=== PATIENT | female | born 1975 | race Caucasian/White ===

== ENCOUNTER 2022-05-23 09:42 | Day surgery (SDC) | payer OTHER ==
[~2022-05-23] VITALS: Ht 152.4 cm; Wt 77.1 kg
[2022-05-23] MEDS ORDERED: fentaNYL citrate 0.05 MG/ML VIAL ONE (10:16)
[2022-05-23] MEDS ORDERED: diphenhydrAMINE 50 MG/ML VIAL ONE (10:16)
[2022-05-23] MEDS ORDERED: MIDAZOLAM 2 MG/2 ML VIAL ONE (10:17)
[2022-05-23] MEDS ORDERED: LIDOCAINE 2% 100 MG/5 ML UJET TP ONE (10:17)
[2022-05-23] MEDS ORDERED: fentaNYL citrate 0.05 MG/ML VIAL IVP ONE (12:15)
[2022-05-23] MEDS ORDERED: MIDAZOLAM 2 MG/2 ML VIAL IVP ONE (12:15)
== END 2022-05-23 12:35 | disposition home or self-care (01) ==
LOC: MOR 09:42 → MMU 09:43 → MOR 12:35
PROVIDERS: ATTEND Internal Medicine Gastroenterology
DX: Z12.11 Encounter for screening for malignant neoplasm of colon (principal); K29.50 Unspecified chronic gastritis without bleeding; K31.7 Polyp of stomach and duodenum; K59.00 Constipation, unspecified; K64.9 Unspecified hemorrhoids; G43.909 Migraine, unspecified, not intractable, without status migrainosus; K21.9 Gastro-esophageal reflux disease without esophagitis; Z80.0 Family history of malignant neoplasm of digestive organs; Z79.899 Other long term (current) drug therapy; Z20.822 Contact with and (suspected) exposure to COVID-19
CPT/HCPCS: 43239; 43251; 45378; 81025; 87426; 88305; 88312; 88313; 88342; J2250; J3010; J1200